=== PATIENT | male | born 1950 | race American Indian/Alaskan Native ===

== ENCOUNTER 2018-08-27 15:16 | Inpatient (IN) | payer MEDICARE ==
[2018-08-27] MEDS ORDERED: ZOFRAN ODT PO PRN (15:22)
[2018-08-27] MEDS ORDERED: HABITROL TD PRN (15:22)
[2018-08-27] MEDS ORDERED: ALUM-MAG HYDROX-SIMETH 200-200-20MG/5ML PO PRN (15:22)
[2018-08-27] MEDS ORDERED: ZOFRAN IV PRN (15:22)
[2018-08-27] MEDS ORDERED: DULCOLAX PR PRN (15:22)
[2018-08-27] MEDS ORDERED: IMODIUM PO PRN (15:22)
[2018-08-27] MEDS ORDERED: SENOKOT PO PRN (15:22)
[2018-08-27] MEDS ORDERED: IBUPROFEN PO PRN (15:22)
[2018-08-27] MEDS ORDERED: ATIVAN IV PRN (15:22)
[2018-08-27] MEDS ORDERED: TYLENOL PO PRN (15:22)
[2018-08-27] MEDS ORDERED: NACL 0.9% 1000 ML 1,000 ML IV SCH (16:00)
[2018-08-27] MEDS ORDERED: REQUIP PO PRN (16:12)
[2018-08-27] MEDS ORDERED: BENTYL PO PRN (16:12)
[2018-08-27] MEDS ORDERED: VISTARIL IM PRN (16:12)
[2018-08-27] MEDS ORDERED: ROBAXIN PO PRN (16:12)
[2018-08-27] MEDS ORDERED: CATAPRES PO PRN (16:12)
[2018-08-27] MEDS ORDERED: VISTARIL PO PRN (16:12)
[2018-08-27 16:34] LABS: Hematocrit 45.1 % (35.5-45.6); Hemoglobin 15.7 gm/dl (11.8-15.2); Mean Corpuscular HGB Conc 35 % (32-34); Mean Corpuscular Volume 88 fl (84-94); Platelet Count 181 K/mm3 (140-440); Red Blood Count 5.12 M/mm3 (3.65-5.03)
[2018-08-27 16:45] LABS: INR 0.95 (0.87-1.13)
[2018-08-27 16:55] LABS: Alanine Aminotransferase 14 units/L (7-56); Albumin 4.6 g/dL (3.9-5); BUN/Creatinine Ratio 13; Blood Urea Nitrogen 15 mg/dL (9-20); Hemolysis Index 8
[2018-08-27] MEDS ORDERED: FOLVITE IV ONE (18:00)
[2018-08-27] MEDS ORDERED: LACTATED RINGERS IV ONE (18:00)
[2018-08-27] MEDS ORDERED: INFUVITE IV ONE (18:00)
[2018-08-27] MEDS: LIBRIUM PO SCH ×2 (18:54→22:21)
[2018-08-27] MEDS: SUBOXONE 2 MG-0.5 MG SL SCH (18:54)
[2018-08-27] MEDS: VITAMIN B-1 PO SCH (18:54)
[2018-08-27 19:03] LABS: Bilirubin,Urine NEG (Negative); Blood,Urine NEG (Negative); Color,Urine Yellow (Yellow); Mucus,Urine FEW /HPF
[2018-08-27 19:09] LABS: Amphetamine Screen,Urine PRESUMPTIVE NEGATIVE; Benzodiazepines Screen,Urine PRESUMPTIVE NEGATIVE; Cannabinoid Screen,Urine PRESUMPTIVE NEGATIVE; Methadone Screen,Urine PRESUMPTIVE NEGATIVE; Opiate Screen,Urine PRESUMPTIVE NEGATIVE
[2018-08-27 19:26] LABS: Cocaine Screen,Urine PRESUMPTIVE POSITIVE
[2018-08-27] MEDS: DESYREL PO SCH (22:21)
[2018-08-28] MEDS: SUBOXONE 2 MG-0.5 MG SL SCH (01:17)
[2018-08-28] MEDS: LIBRIUM PO SCH ×2 (01:20→06:28)
--- NOTE | 2018-08-28 06:55 | Event Note ---
Date: 08/27/18 See H/p in reports Etoh/cocaine dependence Poor historian
[2018-08-28] MEDS: ATIVAN PO SCH ×4 (07:15→19:20)
--- NOTE | 2018-08-28 08:02 | History and Physical Report ---
CHIEF COMPLAINT: ETOH and cocaine dependence and withdrawal symptoms. HISTORY OF PRESENT ILLNESS: A 68-year-old -[place] male, very poor historian, comes in for help for ETOH and cocaine dependence. The patient has been doing this for the last 20 years. The patient does about a half a bottle to full bottle of wine every 4 times a week and also cocaine every day. The patient did not able to quantify. Very poor historian. Does not want to give much history. States he is not on any regular medications. PAST MEDICAL HISTORY: Alcoholism. No hypertension or diabetes. PAST SURGICAL HISTORY: Unavailable. FAMILY HISTORY: Alcohol and smoking. Does not want nicotine. FAMILY HISTORY: Hypertension. REVIEW OF SYSTEMS: Significant for tremulousness and nervousness and shaking. Some diaphoresis. Otherwise, review of systems is negative. Also, palpitations occasionally. PHYSICAL EXAMINATION: GENERAL: Elderly male, cooperative during examination. VITAL SIGNS: Temperature is 98.3, pulse is 79, respirations 18, sats are 99%. HEENT: Unremarkable. Pupils equal and reactive. NECK: Supple, no lymphadenopathy, no thyromegaly. LUNGS: Clear to auscultation and percussion. Good air entry. CARDIOVASCULAR: S1, S2 heard. No gallop, no murmur, no rub. Apical impulse in left fifth intercostal space and midclavicular line. ABDOMEN: Soft and benign. No hepatosplenomegaly. No guarding, no rigidity. Hernial orifices are normal. EXTREMITIES: Good pedal pulses. No pedal edema. LABORATORY DATA: White count is 7300, H and H is 15.7 and 45.1. Sodium is 135, slightly low; potassium is 4.7, chloride is 97.5. Glucose is slightly high 109, otherwise electrolytes are normal. Urine drug screen is positive for cocaine. ASSESSMENT AND PLAN: 1. ETOH dependence. The patient initiated on Ativan taper and a banana bag. The patient was initially initiated on Suboxone because of the information given that he was opiate dependence. The patient says he does not have any opiate dependence. 2. Cocaine dependence and withdrawal. The patient was continued on Ativan taper protocol, medical stabilization orders, which should work for both alcohol and cocaine.Initially on Suboxone bcoz information given was that he is opiate dependent 3. Nicotine dependence. The patient does not want nicotine patch. The patient counseled. The patient admitted for 3 days for medical stabilization and then discharged to outpatient facility. 4. Hyponatremia, mild. Should correct with IV fluids. 5.DVt prophylaxis On Lovenox and GI prophylaxis JOB# [id number] MARIO/ZOYA MENDES
[2018-08-28] MEDS: VITAMIN B-1 PO SCH (09:25)
[2018-08-28] MEDS: THERAGRAN Tab PO SCH (09:25)
[2018-08-28] MEDS: FOLVITE PO SCH (09:26)
[2018-08-28] MEDS ORDERED: LIBRIUM PO PRN (16:17)
[2018-08-28] MEDS ORDERED: SUBOXONE 2 MG-0.5 MG SL SCH (16:18)
--- NOTE | 2018-08-28 17:30 | Progress Note ---
Assessment and Plan Assessment and plan: Patient is admitted for alcohol withdrawal and detox Cocaine abuse Patient said he has history of mental illness, schizophrenia - Patient is being managed according to [facility] protocol - Once stable patient may need transfer to psych facility DVT prophylaxis - On Lovenox Disposition - Continue [facility] care History Interval history: Patient was seen and evaluated this morning, patient said he don't know what he is feeling. Hospitalist Physical - Physical exam Narrative exam: Not in cardiopulmonary distress. The patient appeared well nourished and normally developed. Vital signs as documented. Head exam is unremarkable. No scleral icterus . Neck is without jugular venous distension, thyromegaly, or carotid bruits. Lungs are clear to auscultation. Cardiac exam reveals regular rate and Rhythm. First and second heart sounds normal. No murmurs, rubs or gallops. Abdominal exam reveals normal bowel sounds, no masses, no organomegaly and no aortic enlargement. Extremities are nonedematous and both femoral and pedal pulses are normal. 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 No focal weakness. - Constitutional Vitals: Temp Pulse Resp BP Pulse Ox 98.5 F 107 H 18 127/87 97 08/28/18 15:46 08/28/18 15:46 08/28/18 15:46 08/28/18 15:46 08/28/18 15:46 Results - Labs CBC & Chem 7: 08/27/18 16:07 08/27/18 16:07 Labs: Laboratory Last Values WBC 7.3 K/mm3 (4.5-11.0) 08/27/18 16:07 RBC 5.12 M/mm3 (3.65-5.03) H 08/27/18 16:07 Hgb 15.7 gm/dl (11.8-15.2) H 08/27/18 16:07 Hct 45.1 % (35.5-45.6) 08/27/18 16:07 MCV 88 fl (84-94) 08/27/18 16:07 MCH 31 pg (28-32) 08/27/18 16:07 MCHC 35 % (32-34) H 08/27/18 16:07 RDW 14.0 % (13.2-15.2) 08/27/18 16:07 Plt Count 181 K/mm3 (140-440) 08/27/18 16:07 PT 13.3 Sec. (12.2-14.9) 08/27/18 16:07 INR 0.95 (0.87-1.13) 08/27/18 16:07 Sodium 135 mmol/L (137-145) L 08/27/18 16:07 Potassium 4.7 mmol/L (3.6-5.0) 08/27/18 16:07 Chloride 97.5 mmol/L (98-107) L 08/27/18 16:07 Carbon Dioxide 26 mmol/L (22-30) 08/27/18 16:07 Anion Gap 16 mmol/L 08/27/18 16:07 BUN 15 mg/dL (9-20) 08/27/18 16:07 Creatinine 1.2 mg/dL (0.8-1.5) 08/27/18 16:07 Estimated GFR > 60 ml/min 08/27/18 16:07 BUN/Creatinine Ratio 13 % 08/27/18 16:07 Glucose 109 mg/dL (75-100) H 08/27/18 16:07 Calcium 10.0 mg/dL (8.4-10.2) 08/27/18 16:07 Total Bilirubin 0.50 mg/dL (0.1-1.2) 08/27/18 16:07 AST 28 units/L (5-40) 08/27/18 16:07 ALT 14 units/L (7-56) 08/27/18 16:07 Alkaline Phosphatase 111 units/L (35-129) 08/27/18 16:07 Total Protein 8.0 g/dL (6.3-8.2) 08/27/18 16:07 Albumin 4.6 g/dL (3.9-5) 08/27/18 16:07 Albumin/Globulin Ratio 1.4 % 08/27/18 16:07 Amylase 111 units/L (27-131) 08/27/18 16:07 Lipase 37 units/L (13-60) 08/27/18 16:07 Urine Color Yellow (Yellow) 08/27/18 18:50 Urine Turbidity Clear (Clear) 08/27/18 18:50 Urine pH 5.0 (5.0-7.0) 08/27/18 18:50 Ur Specific [place] 1.024 (1.003-1.030) 08/27/18 18:50 Urine Protein 30 mg/dl mg/dL (Negative) 08/27/18 18:50 Urine Glucose (UA) Neg mg/dL (Negative) 08/27/18 18:50 Urine Ketones Neg mg/dL (Negative) 08/27/18 18:50 Urine Blood Neg (Negative) 08/27/18 18:50 Urine Nitrite Neg (Negative) 08/27/18 18:50 Urine Bilirubin Neg (Negative) 08/27/18 18:50 Urine Urobilinogen 2.0 mg/dL (<2.0) 08/27/18 18:50 Ur Leukocyte Esterase Neg (Negative) 08/27/18 18:50 Urine WBC (Auto) 1.0 /HPF (0.0-6.0) 08/27/18 18:50 Urine RBC (Auto) 1.0 /HPF (0.0-6.0) 08/27/18 18:50 U Epithel Cells (Auto) < 1.0 /HPF (0-13.0) 08/27/18 18:50 Urine Mucus Few /HPF 08/27/18 18:50 Urine Opiates Screen Presumptive negative 08/27/18 18:50 Urine Methadone Screen Presumptive negative 08/27/18 18:50 Ur Barbiturates Screen Presumptive negative 08/27/18 18:50 Ur Phencyclidine Scrn Presumptive negative 08/27/18 18:50 Ur Amphetamines Screen Presumptive negative 08/27/18 18:50 U Benzodiazepines Scrn Presumptive negative 08/27/18 18:50 Urine Cocaine Screen Presumptive positive 08/27/18 18:50 U Marijuana (THC) Screen Presumptive negative 08/27/18 18:50 Drugs of Abuse Note Disclamer 08/27/18 18:50 Plasma/Serum Alcohol < 0.01 % (0-0.07) 08/27/18 16:07
[2018-08-29] MEDS: ATIVAN PO SCH ×4 (05:21→15:13)
[2018-08-29] MEDS ORDERED: ATIVAN PO SCH (06:56)
[2018-08-29 07:38] LABS: BUN/Creatinine Ratio 12; Blood Urea Nitrogen 12 mg/dL (9-20); Calcium 9.1 mg/dL (8.4-10.2); Hemolysis Index 60
[2018-08-29] MEDS: DESYREL PO SCH (08:01)
[2018-08-29] MEDS: FOLVITE PO SCH (09:25)
[2018-08-29] MEDS: THERAGRAN Tab PO SCH (09:25)
[2018-08-29] MEDS: VITAMIN B-1 PO SCH (09:26)
[2018-08-29] MEDS ORDERED: SUBOXONE 2 MG-0.5 MG SL SCH (16:19)
--- NOTE | 2018-08-29 16:52 | Progress Note ---
Assessment and Plan Assessment and plan: Patient is admitted for alcohol withdrawal and detox Cocaine abuse Patient said he has history of mental illness, schizophrenia - Patient is being managed according to [facility] protocol - Once stable patient may need transfer to psych facility - Patient was sleepy this morning, held benzo DVT prophylaxis - On Lovenox Disposition - Continue [facility] care History Interval history: Patient was seen and evaluated this morning, patient was sleepy. Hospitalist Physical - Physical exam Narrative exam: Not in cardiopulmonary distress. The patient appeared well nourished and normally developed. Vital signs as documented. Head exam is unremarkable. No scleral icterus . Neck is without jugular venous distension, thyromegaly, or carotid bruits. Lungs are clear to auscultation. Cardiac exam reveals regular rate and Rhythm. First and second heart sounds normal. No murmurs, rubs or gallops. Abdominal exam reveals normal bowel sounds, no masses, no organomegaly and no aortic enlargement. Extremities are nonedematous and both femoral and pedal pulses are normal. 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 No focal weakness. - Constitutional Vitals: Temp Pulse Resp BP Pulse Ox 98.3 F 102 H 18 121/87 93 08/29/18 13:51 08/29/18 08:35 08/29/18 13:51 08/29/18 13:51 08/29/18 08:35 Results - Labs CBC & Chem 7: 08/27/18 16:07 08/29/18 06:23 Labs: Laboratory Last Values WBC 7.3 K/mm3 (4.5-11.0) 08/27/18 16:07 RBC 5.12 M/mm3 (3.65-5.03) H 08/27/18 16:07 Hgb 15.7 gm/dl (11.8-15.2) H 08/27/18 16:07 Hct 45.1 % (35.5-45.6) 08/27/18 16:07 MCV 88 fl (84-94) 08/27/18 16:07 MCH 31 pg (28-32) 08/27/18 16:07 MCHC 35 % (32-34) H 08/27/18 16:07 RDW 14.0 % (13.2-15.2) 08/27/18 16:07 Plt Count 181 K/mm3 (140-440) 08/27/18 16:07 PT 13.3 Sec. (12.2-14.9) 08/27/18 16:07 INR 0.95 (0.87-1.13) 08/27/18 16:07 Sodium 136 mmol/L (137-145) L 08/29/18 06:23 Potassium 4.6 mmol/L (3.6-5.0) 08/29/18 06:23 Chloride 102.2 mmol/L (98-107) 08/29/18 06:23 Carbon Dioxide 23 mmol/L (22-30) 08/29/18 06:23 Anion Gap 15 mmol/L 08/29/18 06:23 BUN 12 mg/dL (9-20) 08/29/18 06:23 Creatinine 1.0 mg/dL (0.8-1.5) 08/29/18 06:23 Estimated GFR > 60 ml/min 08/29/18 06:23 BUN/Creatinine Ratio 12 % 08/29/18 06:23 Glucose 105 mg/dL (75-100) H 08/29/18 06:23 Calcium 9.1 mg/dL (8.4-10.2) 08/29/18 06:23 Total Bilirubin 0.50 mg/dL (0.1-1.2) 08/27/18 16:07 AST 28 units/L (5-40) 08/27/18 16:07 ALT 14 units/L (7-56) 08/27/18 16:07 Alkaline Phosphatase 111 units/L (35-129) 08/27/18 16:07 Total Protein 8.0 g/dL (6.3-8.2) 08/27/18 16:07 Albumin 4.6 g/dL (3.9-5) 08/27/18 16:07 Albumin/Globulin Ratio 1.4 % 08/27/18 16:07 Amylase 111 units/L (27-131) 08/27/18 16:07 Lipase 37 units/L (13-60) 08/27/18 16:07 Urine Color Yellow (Yellow) 08/27/18 18:50 Urine Turbidity Clear (Clear) 08/27/18 18:50 Urine pH 5.0 (5.0-7.0) 08/27/18 18:50 Ur Specific [place] 1.024 (1.003-1.030) 08/27/18 18:50 Urine Protein 30 mg/dl mg/dL (Negative) 08/27/18 18:50 Urine Glucose (UA) Neg mg/dL (Negative) 08/27/18 18:50 Urine Ketones Neg mg/dL (Negative) 08/27/18 18:50 Urine Blood Neg (Negative) 08/27/18 18:50 Urine Nitrite Neg (Negative) 08/27/18 18:50 Urine Bilirubin Neg (Negative) 08/27/18 18:50 Urine Urobilinogen 2.0 mg/dL (<2.0) 08/27/18 18:50 Ur Leukocyte Esterase Neg (Negative) 08/27/18 18:50 Urine WBC (Auto) 1.0 /HPF (0.0-6.0) 08/27/18 18:50 Urine RBC (Auto) 1.0 /HPF (0.0-6.0) 08/27/18 18:50 U Epithel Cells (Auto) < 1.0 /HPF (0-13.0) 08/27/18 18:50 Urine Mucus Few /HPF 08/27/18 18:50 Urine Opiates Screen Presumptive negative 08/27/18 18:50 Urine Methadone Screen Presumptive negative 08/27/18 18:50 Ur Barbiturates Screen Presumptive negative 08/27/18 18:50 Ur Phencyclidine Scrn Presumptive negative 08/27/18 18:50 Ur Amphetamines Screen Presumptive negative 08/27/18 18:50 U Benzodiazepines Scrn Presumptive negative 08/27/18 18:50 Urine Cocaine Screen Presumptive positive 08/27/18 18:50 U Marijuana (THC) Screen Presumptive negative 08/27/18 18:50 Drugs of Abuse Note Disclamer 08/27/18 18:50 Plasma/Serum Alcohol < 0.01 % (0-0.07) 08/27/18 16:07
[2018-08-30 04:59] LABS: BUN/Creatinine Ratio 13; Blood Urea Nitrogen 15 mg/dL (9-20); Calcium 8.8 mg/dL (8.4-10.2); Hemolysis Index 12
[2018-08-30] MEDS: ATIVAN PO SCH (07:11)
[2018-08-30] MEDS: DESYREL PO SCH (07:12)
--- NOTE | 2018-08-30 08:51 | Discharge Summary ---
Providers - Providers Date of Admission: 08/27/18 15:47 Date of discharge: 08/30/18 Attending physician: ANDERSON LEWIS MD Primary care physician: TIFFANIE KOHLI Hospitalization Reason for admission: alcohol and cocaine with drawal Hospital course: Patient was admitted to MICU for alcohol and cocaine withdrawal and was treated according to [facility] protocol and transferred to inpatient facility for further treatment of his psychiatric condition and detoxification. patient was hemodynamically stable at the time of discharge. Disposition: [id number] PSY HOSP/PSY UNIT Time spent for discharge: 32 minutes - Discharge Diagnoses (1) Alcohol abuse Status: Acute (2) Cocaine abuse Status: Acute (3) Alcohol withdrawal Status: Acute (4) Cocaine withdrawal Status: Acute Core Measure Documentation - Palliative Care Palliative Care/ Comfort Measures: Not Applicable - Core Measures Any of the following diagnoses?: none Exam - Physical Exam Narrative exam: Not in cardiopulmonary distress. The patient appeared well nourished and normally developed. Vital signs as documented. Head exam is unremarkable. No scleral icterus . Neck is without jugular venous distension, thyromegaly, or carotid bruits. Lungs are clear to auscultation. Cardiac exam reveals regular rate and Rhythm. First and second heart sounds normal. No murmurs, rubs or gallops. Abdominal exam reveals normal bowel sounds, no masses, no organomegaly and no aortic enlargement. Extremities are nonedematous and both femoral and pedal pulses are normal. 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 No focal weakness. - Constitutional Vitals: Temp Pulse Resp BP Pulse Ox 98 F 102 H 16 131/57 95 08/30/18 04:00 08/30/18 04:00 08/30/18 08:00 08/30/18 04:00 08/30/18 08:00 Plan Activity: no restrictions Weight Bearing Status: Full Weight Bearing Diet: regular Follow up with: TIFFANIE KOHLI MD [Primary Care Provider] - 7 Days
[2018-08-30] MEDS: FOLVITE PO SCH (08:59)
[2018-08-30] MEDS: THERAGRAN Tab PO SCH (09:00)
[2018-08-30] MEDS: VITAMIN B-1 PO SCH (09:00)
[2018-08-30 09:02] VITALS: BP 154/93
[2018-08-30] MEDS ORDERED: ATIVAN PO SCH (12:00)
== END 2018-08-30 09:50 | DRG 897 ==
LOC: UNDOADMIN 15:16 → 2B-ACE 15:16 → MSU 15:47
PROVIDERS: ADMIT Internal Medicine; ATTEND Internal Medicine
DX: F14.23 Cocaine dependence with withdrawal (principal); E87.1 Hypo-osmolality and hyponatremia; F10.239 Alcohol dependence with withdrawal, unspecified; F20.9 Schizophrenia, unspecified; F17.200 Nicotine dependence, unspecified, uncomplicated; Z82.49 Family history of ischemic heart disease and other diseases of the circulatory system
CPT/HCPCS: 36415; 80048; 80053; 80307; 80320; 81001; 82150; 83690; 85027; 85610; 87116; G0378; G0480; J2405; J7030; J7120